=== PATIENT | female | born 1995 | race Caucasian/White ===

== ENCOUNTER 2017-11-11 05:27 | Emergency (ER) | payer OTHER ==
[~2017-11-11] VITALS: Ht 152.4 cm; Wt 37.7 kg
[2017-11-11 05:40] VITALS: Ht 152.4 cm; Wt 37.7 kg
--- NOTE | 2017-11-11 06:04 | ERD ---
ER Documentation Chief Complaint Chief Complaint suicidal ideation , had a fight w/ boyfriend, hx depression (AURELIANO BIRD) HPI This is a 22-year-old who says she is suicidal. Brought in by ambulance. She said she had a fight with her department. Patient has history of depression. Says she wants to kill herself. Does not provide a plan. (AURELIANO BIRD) ROS All systems reviewed and are negative except as per history of present illness. (AURELIANO BIRD) Medications Home Meds Active Scripts Quetiapine Fumarate* (Seroquel*) 200 Mg Tablet, 200 MG PO HS, #15 TAB Prov:LEKKOS,APOSTOLOS A. DO 11/11/17 Lorazepam* (Lorazepam*) 1 Mg Tablet, 1 MG PO every day, #10 TAB Prov:LEKKOS,APOSTOLOS A. DO 11/11/17 Allergies Allergies: Coded Allergies: No Known Allergy (Unverified , 11/11/17) Physical Exam Vitals Vital Signs Date Time Temp Pulse Resp B/P Pulse Ox O2 Delivery O2 Flow Rate FiO2 11/11/17 05:40 97.7 88 20 111/74 100 (LEKKOS,APOSTOLOS A. DO) Physical Exam Const: [] Head: Atraumatic Eyes: Normal Conjunctiva ENT: Normal External Ears, Nose and Mouth. Neck: Full range of motion..~ No meningismus. Resp: Clear to auscultation bilaterally Cardio: Regular rate and rhythm, no murmurs Abd: Soft, non tender, non distended. Normal bowel sounds Skin: No petechiae or rashes Back: No midline or flank tenderness Ext: No cyanosis, or edema Neur: Awake and alert Psych: Normal Mood and Affect (AURELIANO BIRD) Result Diagram: 11/11/17 0647 Results 24 hrs Laboratory Tests Test 11/11/17 06:47 White Blood Count 6.610^3/ul Red Blood Count 4.3710^6/ul Hemoglobin 13.6g/dl Hematocrit 40.6% Mean Corpuscular Volume 92.9fl Mean Corpuscular Hemoglobin 31.1pg Mean Corpuscular Hemoglobin Concent 33.5g/dl Red Cell Distribution Width 12.9% Platelet Count 27031^3/UL Mean Platelet Volume 11.3fl Neutrophils % 74.6% Lymphocytes % 16.9% Monocytes % 7.2% Eosinophils % 0.5% Basophils % 0.5% Nucleated Red Blood Cells % 0.0/100WBC Neutrophils # 4.910^3/ul Lymphocytes # 1.110^3/ul Monocytes # 0.510^3/ul Eosinophils # 0.010^3/ul Basophils # 0.010^3/ul Nucleated Red Blood Cells # 0.010^3/ul (NEYDA FULLER DO) Procedures/MDM Patient's behavioral symptoms have stabilized while in the department. Patient is medically cleared and appropriate for psychiatric evaluation and work up. No e/o neurologic, toxic, infectious, or metabolic cause. Pending final evaluation by PET team. Signed out to Dr. Fuller (AURELIANO BIRD) Spoke with telemetry psychiatrist physician who said that the patient is clear for discharge she is not suicidal. She advised me to discharge her on 200 mg of Seroquel at night as well as Ativan 1 mg each day (NEYDA FULLER DO) Departure Diagnosis: Primary Impression: Suicidal ideation Condition: Stable AURELIANO BIRD Nov 11, 2017 06:04 NEYDA FULLER DO Nov 11, 2017 07:15
[2017-11-11 07:01] LABS: BASOPHILS % 0.5 % (0.0-2.0); EOSINOPHILS % 0.5 % (0.0-7.0); HEMATOCRIT 40.6 % (37.0-47.0); HEMOGLOBIN 13.6 g/dl (12.0-16.0); LYMPHOCYTES # 1.1 10^3/ul (0.8-2.9); LYMPHOCYTES % 16.9 % (15.0-51.0); MEAN CORPUSCULAR HEMOGLOBIN 31.1 pg (29.0-33.0); MEAN CORPUSCULAR HGB CONC 33.5 g/dl (32.0-37.0); MEAN CORPUSCULAR VOLUME 92.9 fl (82.0-101.0); MEAN PLATELET VOLUME 11.3 fl (7.4-10.4); MONOCYTE # 0.5 10^3/ul (0.3-0.9); MONOCYTES % 7.2 % (0.0-11.0); NEUTROPHIL # 4.9 10^3/ul (1.6-7.5); NEUTROPHILS % 74.6 % (39.0-77.0); PLATELET COUNT 197 10^3/UL (140-415); RED BLOOD COUNT 4.37 10^6/ul (4.20-5.40); RED CELL DISTRIBUTION WIDTH 12.9 % (11.5-14.5); WHITE BLOOD COUNT 6.6 10^3/ul (4.8-10.8)
[2017-11-11] MEDS ORDERED: QUET200T PO (07:13)
[2017-11-11] MEDS ORDERED: LORA1TAB PO (07:13)
--- NOTE | 2017-11-11 07:13 | PSY ---
Date/Time of Note Date/Time of Note DATE: 11/11/17 TIME: 07:03 Psychiatric Subjective Eval Consent Pt consented to telemedicine: Yes Subjective Evaluation Patient location: emergency Chief Complaint: suicidal ideation , had a fight w/ boyfriend, hx depression Reason for consult: si History of present illness patient is a 22 yo female employed with [employer] Of depression and anxiety who came to the ER because she was feeling suicidal following a fight with her boyfriend and problem at work, she is telling me that she has been suffering from anxiety and depression since she was 10 yo and has been on multiple medication , last one was seroquel about 5 months ago. Lately she has been feeling more anxious with panic attack and was feeling suicidal following a fight with her boyfriend , but denies feeling suicidal anymore, she states that she has had thoughts but would n"never kill myself", she denies any manic or psychotic symptoms, no current si or hi, no drug or alcohol abuse. she feels safe to be discharged on medication. Hospitalization: no Family History denies Medical history Problems Medical Problems: (1) Suicidal ideation Status: Acute Allergies: Coded Allergies: No Known Allergy (Unverified , 11/11/17) Substance Abuse Substance use: No known substance abuse Social History Marital status: single Level of education: college DPA/Conservatorship: No Occupation/Penitentiary: employed Psychiatric Objective Eval Review of Systems: Review of Systems: Not Applicable Physical Examination: Physical Examination: Applicable Sleep: Insomnia Appetite: Decreased, Weight Loss Energy: Decreased Interest: Decreased Mental Status Examination: Appearance: Groomed Eye Contact: Good Psychomotor Activity: Normal Behavior: Cooperative AFFECT: Appropriate Mood: Anxious Though Process: Linear Thought Content: Normal Suicidal: No Homicidal: No On 72 hour hold: No Orientation: x4 Cognition: Alert Insight: Intact Judgement: Intact Attention Span: Intact Laboratory Results Laboratory Tests Test 11/11/17 06:47 White Blood Count 6.610^3/ul Red Blood Count 4.3710^6/ul Hemoglobin 13.6g/dl Hematocrit 40.6% Mean Corpuscular Volume 92.9fl Mean Corpuscular Hemoglobin 31.1pg Mean Corpuscular Hemoglobin Concent 33.5g/dl Red Cell Distribution Width 12.9% Platelet Count 63192^3/UL Mean Platelet Volume 11.3fl Neutrophils % 74.6% Lymphocytes % 16.9% Monocytes % 7.2% Eosinophils % 0.5% Basophils % 0.5% Nucleated Red Blood Cells % 0.0/100WBC Neutrophils # 4.910^3/ul Lymphocytes # 1.110^3/ul Monocytes # 0.510^3/ul Eosinophils # 0.010^3/ul Basophils # 0.010^3/ul Nucleated Red Blood Cells # 0.010^3/ul Assessment and Plan Assessment/Diagnosis [place] I: mood do nos anxiety do nos [place] II: deferred [place] III: as per record [place] IV: poor social support [place] V: gaf 75 Recommendation/Plan Medication Management seroquel 200 mg po qhs for one month ativan 1 mg po qd for 2 weeks Follow-up/Disposition In my opinion,for this patient, outpatient care is the least restrictive option. Based on available evidence, ~this condition CAN be safely treated at a lower level of care effective today. Patient is stable without ~clear and convincing evidence of imminent danger due to mental illness that requires acute inpatient psychiatric ~care as the least restrictive alternative. Please discharge patient with referral for follow up to a outpatient mental health clinic for individual psychotherapy once a week for at least 45 mn for 6 months and medication management. ARTURO CUMMINGS MD Nov 11, 2017 07:13
[2017-11-11 07:29] LABS: ADD UMIC YES; UR ASCORBIC ACID NEGATIVE (NEGATIVE); UR BILIRUBIN (Dip) NEGATIVE (NEGATIVE); UR BLOOD (Dip) NEGATIVE (NEGATIVE); UR BUDDING YEAST MANY /HPF (NONE SEEN); UR CLARITY CLOUDY (CLEAR); UR COLOR YELLOW (YELLOW); UR GLUCOSE (Dip) NEGATIVE (NEGATIVE); UR KETONES (Dip) NEGATIVE (NEGATIVE); UR LEUKOCYTE ESTERASE (Dip) NEGATIVE Leu/ul (NEGATIVE); UR MUCUS FEW /HPF (NONE SEEN); UR NITRITE (Dip) NEGATIVE (NEGATIVE); UR RBC 0 /HPF (0-5); UR TOTAL PROTEIN (Dip) NEGATIVE (NEGATIVE); UR UROBILINOGEN (Dip) NEGATIVE (NEGATIVE)
[2017-11-11 07:32] LABS: ALANINE AMINOTRANSFERASE 29 IU/L (13-69); ALBUMIN 4.5 g/dl (3.3-4.9); ALBUMIN/GLOBULIN RATIO 1.45; ALKALINE PHOSPHATASE 65 IU/L (42-121); ANION GAP 16 (8-16); ASPARTATE AMINO TRANSFERASE 20 IU/L (15-46); BILIRUBIN,INDIRECT 0.3 mg/dl (0-1.1); BILIRUBIN,TOTAL 0.3 mg/dl (0.2-1.3); BLOOD UREA NITROGEN 14 mg/dl (7-20); CALCIUM 9.4 mg/dl (8.4-10.2); CARBON DIOXIDE 25 mmol/L (21-31); CHLORIDE 107 mmol/L (97-110); CREATININE 0.74 mg/dl (0.44-1.00); GLUCOSE 97 mg/dl (70-220); POTASSIUM 4.5 mmol/L (3.5-5.1); SODIUM 143 mmol/L (135-144); TOTAL PROTEIN 7.6 g/dl (6.1-8.1)
[2017-11-11 07:33] LABS: ACETAMINOPHEN < 10.0 ug/ml (10.0-30.0); ETHANOL < 10.0 mg/dl; SALICYLATE < 1.0 mg/dl (5.0-30.0)
[2017-11-11 07:40] VITALS: BP 102/66; PULSE 75; RESP 20; TEMP 97.9
[2017-11-11 07:46] LABS: BARBITURATES Negative (NEGATIVE); BENZODIAZEPINES Negative (NEGATIVE); CANNABINOIDS Positive (NEGATIVE); COCAINE Negative (NEGATIVE); OPIATES Negative (NEGATIVE)
== END 2017-11-11 08:26 | disposition home or self-care (01) ==
LOC: E/R 05:27
DX: R45.851 Suicidal ideations (principal); F32.9 Major depressive disorder, single episode, unspecified
CPT/HCPCS: 80053; 80306; 80307; 81001; 84703; 85025; Z7502; 99284

== ENCOUNTER 2017-12-07 22:09 | Emergency (ER) | END 2017-12-08 00:18 | disposition left against medical advice (07) ==